=== PATIENT | female | born 1960 | race Caucasian/White ===

== ENCOUNTER 2018-03-19 19:38 | Emergency (ER) | payer BC, OTHER ==
[~2018-03-19] VITALS: Ht 172.7 cm; Wt 90.7 kg
[~2018-03-19 19:38] MED LIST: AMBIEN10 MG PO; AMLODIPINE BESYL5 MG PO; CRESTOR10 MG PO; GABAPENTIN400 MG PO; KEFLEX500 MG PO; PANTOPRAZOLE SO40 MG PO; QUETIAPINE FUM100 MG PO; SEROQUEL25 MG PO; TRAMADOL-ACETAMI1 EA PO
[2018-03-19 20:14] LABS: BASOPHILS % 0.3 % (0.0-1.0); EOSINOPHILS % 0.3 % (0.0-6.0); HEMATOCRIT 34.4 % (34.2-44.1); HEMOGLOBIN 11.1 g/dL (12.0-16.0); LYMPHOCYTES % 27.2 % (18.0-39.1); MEAN CORPUSCULAR HEMOGLOBIN 36.3 pg (28-32); MEAN CORPUSCULAR HGB CONC 32.3 g/dL (31-35); MEAN CORPUSCULAR VOLUME 112.4 fL (81-99); MONOCYTES # (AUTO) 0.8 (0.2-0.8); MONOCYTES % 10.6 % (4.4-11.3); NEUTROPHILS # (AUTO) 4.5 (2.1-6.9); NEUTROPHILS % 60.5 % (38.7-80.0); PLATELET COUNT 162 x10e3/uL (140-360); RED BLOOD COUNT 3.06 x10e6/uL (3.6-5.1); RED CELL DISTRIBUTION WIDTH 11.9 % (11.7-14.4)
[2018-03-19 20:36] LABS: ALBUMIN 2.8 g/dL (3.5-5.0); ALBUMIN/GLOBULIN RATIO 0.7 (0.8-2.0); CALCIUM 9.6 mg/dL (8.4-10.2); CREATININE, SERUM 2.43 mg/dL (0.57-1.11)
--- NOTE | 2018-03-19 20:46 | Diagnostic Imaging Report ---
EXAM: PELVIS AP 1-2 VIEWS INDICATION: Fall, pain COMPARISON: None FINDINGS: BONES: No acute fractures. JOINTS: No malalignment. SOFT TISSUES: Normal IMPRESSION: No pelvic fracture. Signed by: Dr. Ly Pollard M.D. on 03/19/2018 8:43 PM
--- NOTE | 2018-03-19 20:46 | Diagnostic Imaging Report ---
EXAM: CHEST SINGLE (PORTABLE), AP 1 view INDICATION: Fall, pain COMPARISON: None FINDINGS: LINES/TUBES: None LUNGS: No consolidations or edema. PLEURA: No effusions or pneumothorax. HEART AND MEDIASTINUM: Normal size and contour. BONES AND SOFT TISSUES: No acute findings. IMPRESSION: No acute thoracic abnormality. Signed by: Dr. Ly Pollard M.D. on 03/19/2018 8:43 PM
--- NOTE | 2018-03-19 21:07 | Diagnostic Imaging Report ---
EXAMINATION: Head and cervical spine CT without contrast. HISTORY: Status post fall, head trauma, dizziness, head and neck pain. COMPARISON: None. TECHNIQUE: Multidetector axial images were obtained without contrast from the foramen magnum to the vertex and through the cervical spine. The images were reconstructed using brain and bone algorithms. Thin section brain images were reformatted into coronal and sagittal planes. Dose modulation, iterative reconstruction, and/or weight based adjustment of the mA/kV was utilized to reduce the radiation dose to as low as reasonably achievable. HEAD CT FINDINGS: Skull: No lytic or blastic lesions. No fractures. Parenchyma: Focal cortical subcortical white matter hypodensity in the left postcentral gyrus and posterior cingulate gyrus, most likely the sequela from remote infarct. A few scattered matter hypodensities, most likely nonspecific chronic microvascular ischemic changes. No mass, hemorrhage or CT evidence of acute vascular insult. Brain volume: Normal for age. Ventricles: No hydrocephalus or displacement. Arteries: No density suggestive of thrombus. Dural sinuses: No abnormal density. Extra-axial spaces: No abnormal density. Incidentally noted tiny lipoma along the left tentorium without mass effect. Foramen magnum: No mass, Chiari malformation, or basilar invagination. Sella: No obvious mass. Paranasal/mastoid sinuses: Imaged portions unremarkable. CERVICAL SPINE CT FINDINGS: Alignment:Normal alignment and lordosis. Soft tissues: Incidentally noted approximately 2.6 cm well-circumscribed probable sebaceous retention cyst in the subcutaneous soft tissues of the right posterior neck. Vertebrae: Normal height and density. No acute fracture, infection or neoplasm. Degenerative changes: C1-C2: Normal C2-C3: Normal C3-C4: Uncovertebral and facet arthrosis in the left, [id number] left foraminal stenoses. C4-C5: Mild symmetric disc bulge without stenoses C5-C6: Small disc osteophyte complex formation, prominent uncovertebral interval. Extensive facet arthrosis. Moderate right and severe left foraminal stenosis. Mild canal narrowing. C6-C7: Disc osteophyte complex formation, uncovertebral and to a lesser extent facet arthrosis. Severe bilateral foraminal stenosis. C7-T1: Normal IMPRESSION: Head CT: 1. No acute traumatic intracranial hemorrhage. 2. 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 Cervical spine CT: 1. No acute fractures or dislocations. 2. Chronic degenerative changes as described. Note: Acute post traumatic spinal cord, vascular or ligamentous injury cannot adequately be assessed with CT. Signed by: Dr. Bere Baron M.D. on 03/19/2018 9:03 PM
[2018-03-19 22:00] LABS: CLARITY,URINE CLOUDY (CLEAR); COLOR,URINE YELLOW (YELLOW); KETONES,URINE TRACE (NEGATIVE); LEUKOCYTE ESTERASE ,URINE TRACE (NEGATIVE); NITRITE,URINE NEGATIVE (NEGATIVE); PROTEIN,URINE DIPSTICK 1+ (NEGATIVE)
[2018-03-19 22:01] LABS: BILIRUBIN,URINE 1+ (NEGATIVE); URINE UROBILINOGEN 1 mg/dL (0.2 - 1)
[2018-03-19 22:15] LABS: BACTERIA,URINE MODERATE /HPF; EPITHELIAL CELLS,URINE FEW /LPF
[2018-03-19] MEDS ORDERED: SODIUM CHLORIDE 0.9% 1000ML 1,000 ML IV ONE (22:30)
[2018-03-19 22:57] VITALS: BP 154/116
== END 2018-03-20 00:34 | disposition home or self-care (01) ==
LOC: ER 19:38
DX: S00.83XA Contusion of other part of head, initial encounter (principal); W06.XXXA Fall from bed, initial encounter; Y93.84 Activity, sleeping; Y92.003 Bedroom of unspecified non-institutional (private) residence as the place of occurrence of the external cause; N30.91 Cystitis, unspecified with hematuria; I10 Essential (primary) hypertension; E78.5 Hyperlipidemia, unspecified; J44.9 Chronic obstructive pulmonary disease, unspecified; E78.00 Pure hypercholesterolemia, unspecified; F31.9 Bipolar disorder, unspecified
CPT/HCPCS: 36415; 70450; 71045; 72125; 72170; 80053; 81001; 85025; 93005; 99285; J7030

== ENCOUNTER 2023-01-12 19:24 | Inpatient (IN) | payer OTHER ==
[~2023-01-12] VITALS: Ht 177.8 cm; Wt 89.8 kg
[2023-01-12] MEDS ORDERED: ALBUTEROL SULF 0.083% NEB SOLN 3 ML NEB NEB STA (19:34)
[2023-01-12] MEDS ORDERED: ALBUTEROL SULF 0.083% NEB SOLN 3 ML NEB ONE (19:38)
[2023-01-12] MEDS ORDERED: IPRATROPIUM BROMIDE 0.02% 2.5 ML NEB ONE (19:38)
[2023-01-12] MEDS ORDERED: CEFTRIAXONE 1 GM VIAL ONE (19:39)
[2023-01-12 19:44] VITALS: PULSE 105; RESP 18; O2SAT 98
[2023-01-12] MEDS ORDERED: IPRATROPIUM BROMIDE 0.02% 2.5 ML NEB NEB ONE (19:45)
[2023-01-12] MEDS ORDERED: DEXAMETHASONE SOD PHOS 10 MG/1 ML VIAL IV ONE (19:45)
[2023-01-12] MEDS ORDERED: SODIUM CHLORIDE 0.9% 1000ML 1,000 ML IV SCH (19:45)
[2023-01-12 20:01] LABS: BASOPHILS # (AUTO) 0.1 (0.0-0.1); BASOPHILS % 0.4 % (0.0-1.0); EOSINOPHILS # (AUTO) 0.1 (0.0-0.4); EOSINOPHILS % 0.6 % (0.0-6.0); HEMATOCRIT 45.8 % (34.2-44.1); HEMOGLOBIN 15.8 g/dL (12.0-16.0); LYMPHOCYTES # (AUTO) 3.3 (1.0-3.2); LYMPHOCYTES % 23.2 % (18.0-39.1); MEAN CORPUSCULAR HEMOGLOBIN 33.8 pg (28-32); MEAN CORPUSCULAR HGB CONC 34.5 g/dL (31-35); MEAN CORPUSCULAR VOLUME 98.1 fL (81-99); MONOCYTES # (AUTO) 1.3 (0.2-0.8); MONOCYTES % 8.9 % (4.4-11.3); NEUTROPHILS # (AUTO) 9.4 (2.1-6.9); NEUTROPHILS % 66.5 % (38.7-80.0); PLATELET COUNT 323 x10e3/uL (140-360); RED BLOOD COUNT 4.67 x10e6/uL (3.6-5.1); RED CELL DISTRIBUTION WIDTH 12.3 % (11.7-14.4)
[2023-01-12 20:17] LABS: ALBUMIN 3.6 g/dL (3.5-5.0); ALBUMIN/GLOBULIN RATIO 0.7 (0.8-2.0); ANION GAP 20.3 mmol/L (8-16); CALCIUM 9.6 mg/dL (8.4-10.2); CREATININE, SERUM 3.13 mg/dL (0.57-1.11); POTASSIUM 3.3 mmol/L (3.5-5.1)
[2023-01-12] MEDS: ALBUTEROL SULF 0.083% NEB SOLN 3 ML NEB NEB SCH (20:45)
[2023-01-12] MEDS ORDERED: ASPIRIN 81 MG CHEW TAB PO ONE (20:45)
[2023-01-12] MEDS ORDERED: ACETAMINOPHEN 325 MG TAB PO PRN (20:45)
[2023-01-13] VITALS (15 sets, daily range): BP systolic 87–135; BP diastolic 60–79; PULSE 80–100; RESP 18–22; TEMP 97.6–98.6; O2SAT 91–100
[2023-01-13] MEDS ORDERED: BENZONATATE 100 MG CAP PO PRN
[2023-01-13] MEDS ORDERED: DEXTROSE 50% SYRINGE 50 ML IV PRN
[2023-01-13] MEDS ORDERED: MELATONIN 5 MG TABLET PO PRN
[2023-01-13] MEDS ORDERED: ONDANSETRON HCL INJ 2MG/ML 2ML 2 MG/ML VIAL IV PRN
[2023-01-13] MEDS ORDERED: DOCUSATE SODIUM 100 MG CAP PO PRN
[2023-01-13] MEDS ORDERED: DIPHENHYDRAMINE HCL 25 MG CAP PO PRN
[2023-01-13] MEDS ORDERED: HYDRALAZINE HCL 20 MG/ML VIAL IV PRN
[2023-01-13] MEDS ORDERED: ALBUTEROL/IPRATROPIUM 3 ML NEB NEB PRN
[2023-01-13] MEDS ORDERED: ACETAMINOPHEN 325 MG TAB PO PRN
[2023-01-13] MEDS ORDERED: LIDOCAINE 4% PATCH TP PRN
[2023-01-13] MEDS ORDERED: POTASSIUM CHLORIDE 20 MEQ TAB CR PO PRN
[2023-01-13] MEDS ORDERED: SIMETHICONE 80 MG CHEW PO PRN
[2023-01-13] MEDS: SODIUM CHLORIDE 0.9% 1000ML 1,000 ML IV SCH ×4 (00:21→21:39)
[2023-01-13] MEDS ORDERED: ALLERGY RELIEF10 M4 (00:37)
[2023-01-13] MEDS ORDERED: MELATONIN3 MG PO (00:37)
[2023-01-13] MEDS ORDERED: DIVALPROEX SOD250 MG PO (00:37)
[2023-01-13] MEDS ORDERED: CITALOPRAM HBR20 MG PO (00:37)
[2023-01-13] MEDS ORDERED: GABAPENTIN300 MG PO (00:37)
[2023-01-13] MEDS ORDERED: METOPROLOL SUCC50 MG PO (00:37)
[2023-01-13] MEDS ORDERED: QUETIAPINE FUM200 MG PO (00:37)
[2023-01-13] MEDS ORDERED: SIMVASTATIN40 MG PO (00:37)
[2023-01-13] MEDS ORDERED: PNEUMOCOCCAL VACCINE POLYVALENT 23 MCG/0.5 ML VIAL IM SCH (00:51)
[2023-01-13] MEDS: ALBUTEROL SULF 0.083% NEB SOLN 3 ML NEB NEB SCH ×7 (01:30→23:00)
[2023-01-13] MEDS: IPRATROPIUM BROMIDE 0.02% 2.5 ML NEB NEB SCH ×5 (01:30→23:00)
[2023-01-13 05:01] LABS: BASOPHILS % 0.2 % (0.0-1.0); HEMATOCRIT 39.9 % (34.2-44.1); HEMOGLOBIN 13.6 g/dL (12.0-16.0); LYMPHOCYTES # (AUTO) 1.4 (1.0-3.2); LYMPHOCYTES % 15.8 % (18.0-39.1); MEAN CORPUSCULAR HEMOGLOBIN 33.7 pg (28-32); MEAN CORPUSCULAR HGB CONC 34.1 g/dL (31-35); MEAN CORPUSCULAR VOLUME 98.8 fL (81-99); MONOCYTES # (AUTO) 0.1 (0.2-0.8); MONOCYTES % 1.6 % (4.4-11.3); NEUTROPHILS # (AUTO) 7.2 (2.1-6.9); NEUTROPHILS % 81.8 % (38.7-80.0); PLATELET COUNT 248 x10e3/uL (140-360); RED BLOOD COUNT 4.04 x10e6/uL (3.6-5.1); RED CELL DISTRIBUTION WIDTH 12.1 % (11.7-14.4)
[2023-01-13 05:22] LABS: ANION GAP 16.6 mmol/L (8-16); CALCIUM 8.4 mg/dL (8.4-10.2); CREATININE, SERUM 2.84 mg/dL (0.57-1.11); MAGNESIUM 2.4 MG/DL (1.3-2.1); POTASSIUM 3.6 mmol/L (3.5-5.1)
[2023-01-13 05:37] LABS: THYROID STIMULATING HORMONE 0.408 uIU/mL (0.350-4.940)
[2023-01-13] MEDS ORDERED: SODIUM CHLORIDE 0.9% 500ML 500 ML IV ONE (05:45)
[2023-01-13] MEDS ORDERED: MIDODRINE 2.5 MG TAB PO ONE (05:45)
[2023-01-13 06:36] LABS: CLARITY,URINE CLEAR (CLEAR); COLOR,URINE YELLOW (YELLOW)
[2023-01-13 06:37] LABS: KETONES,URINE NEGATIVE (NEGATIVE); LEUKOCYTE ESTERASE ,URINE SMALL (NEGATIVE); NITRITE,URINE NEGATIVE (NEGATIVE); PROTEIN,URINE DIPSTICK TRACE (NEGATIVE); URINE UROBILINOGEN 0.2 mg/dL (0.2 - 1)
[2023-01-13 06:57] LABS: BACTERIA,URINE FEW /HPF; RBC,URINE 0-5 /HPF (0-5)
[2023-01-13 06:58] LABS: EPITHELIAL CELLS,URINE FEW /LPF
[2023-01-13] MEDS: PANTOPRAZOLE SOD 40 MG TABEC PO SCH (08:09)
[2023-01-13] MEDS: ENOXAPARIN 30 MG/0.3 ML SYR SC SCH (16:37)
[2023-01-13] MEDS ORDERED: ENOXAPARIN SOD INJ 40 MG/0.4 ML SYR SC SCH (17:00)
[2023-01-13] MEDS: NYSTATIN 15 GM POWDER UD BTL TOP SCH (18:49)
[2023-01-14] VITALS (14 sets, daily range): BP systolic 101–120; BP diastolic 57–68; PULSE 66–102; RESP 17–22; TEMP 97.5–98; O2SAT 93–100
[2023-01-14] MEDS: ALBUTEROL SULF 0.083% NEB SOLN 3 ML NEB NEB SCH ×6 (03:30→23:30)
[2023-01-14] MEDS: SODIUM CHLORIDE 0.9% 1000ML 1,000 ML IV SCH ×3 (04:39→22:32)
[2023-01-14] MEDS: IPRATROPIUM BROMIDE 0.02% 2.5 ML NEB NEB SCH ×4 (06:00→23:30)
[2023-01-14] MEDS: AZITHROMYCIN 250 MG TAB PO SCH (08:10)
[2023-01-14] MEDS: PANTOPRAZOLE SOD 40 MG TABEC PO SCH (08:10)
[2023-01-14] MEDS: NYSTATIN 15 GM POWDER UD BTL TOP SCH ×2 (08:59→17:53)
[2023-01-14] MEDS ORDERED: NYSTATIN/TRIAMCINOLONE 15 GM CR TOP SCH (09:00)
[2023-01-14 09:59] LABS: BASOPHILS % 0.4 % (0.0-1.0); EOSINOPHILS % 0.2 % (0.0-6.0); HEMATOCRIT 36.4 % (34.2-44.1); HEMOGLOBIN 12.1 g/dL (12.0-16.0); LYMPHOCYTES # (AUTO) 2.7 (1.0-3.2); LYMPHOCYTES % 23.4 % (18.0-39.1); MEAN CORPUSCULAR HEMOGLOBIN 33.9 pg (28-32); MEAN CORPUSCULAR HGB CONC 33.2 g/dL (31-35); MONOCYTES # (AUTO) 0.8 (0.2-0.8); MONOCYTES % 7.4 % (4.4-11.3); NEUTROPHILS # (AUTO) 7.7 (2.1-6.9); NEUTROPHILS % 67.9 % (38.7-80.0); PLATELET COUNT 243 x10e3/uL (140-360); RED BLOOD COUNT 3.57 x10e6/uL (3.6-5.1); RED CELL DISTRIBUTION WIDTH 12.6 % (11.7-14.4)
[2023-01-14 10:19] LABS: CALCIUM 8.5 mg/dL (8.4-10.2); CREATININE, SERUM 1.99 mg/dL (0.57-1.11)
[2023-01-14] MEDS ORDERED: ALBUTEROL SULF 0.083% NEB SOLN 3 ML NEB NEB PRN (11:45)
[2023-01-14] MEDS ORDERED: IPRATROPIUM BROMIDE 0.02% 2.5 ML NEB NEB PRN (11:45)
[2023-01-14] MEDS ORDERED: ONDANSETRON HCL 4 MG ORAL DISINTEGRATING TAB PO PRN (14:15)
[2023-01-14] MEDS ORDERED: SODIUM CHLORIDE 0.9% 1000ML 1,000 ML IV ONE (15:30)
[2023-01-14] MEDS: ENOXAPARIN 30 MG/0.3 ML SYR SC SCH (17:53)
[2023-01-15] VITALS (14 sets, daily range): BP systolic 101–113; BP diastolic 67–101; PULSE 62–99; RESP 16–20; TEMP 98–98.6; O2SAT 92–100
[2023-01-15] MEDS: ALBUTEROL SULF 0.083% NEB SOLN 3 ML NEB NEB SCH ×6 (03:02→22:37)
[2023-01-15] MEDS: SODIUM CHLORIDE 0.9% 1000ML 1,000 ML IV SCH ×2 (05:56→11:59)
[2023-01-15] MEDS: IPRATROPIUM BROMIDE 0.02% 2.5 ML NEB NEB SCH ×3 (07:04→19:09)
[2023-01-15] MEDS: PANTOPRAZOLE SOD 40 MG TABEC PO SCH (08:17)
[2023-01-15] MEDS: GABAPENTIN 300 MG CAP PO SCH ×4 (08:17→20:21)
[2023-01-15] MEDS: AZITHROMYCIN 250 MG TAB PO SCH (08:17)
[2023-01-15] MEDS: CITALOPRAM HYDROBROMIDE 20 MG TAB PO SCH (08:17)
[2023-01-15] MEDS: METOPROLOL SUCCINATE 50 MG TAB XL PO SCH (08:17)
[2023-01-15] MEDS: NYSTATIN 15 GM POWDER UD BTL TOP SCH ×2 (08:18→16:47)
[2023-01-15] MEDS: DIVALPROEX SODIUM 250 MG TAB...DR PO SCH ×2 (08:18→16:46)
[2023-01-15] MEDS: ENOXAPARIN 30 MG/0.3 ML SYR SC SCH (16:46)
[2023-01-15] MEDS ORDERED: QUETIAPINE FUMARATE 100 MG TAB PO SCH (21:00)
[2023-01-15] MEDS ORDERED: MELATONIN 3 MG TAB PO SCH (21:00)
[2023-01-15] MEDS ORDERED: SIMVASTATIN 40 MG TAB PO SCH (21:00)
[2023-01-16] VITALS (10 sets, daily range): BP systolic 107–134; BP diastolic 65–90; PULSE 74–91; RESP 16–20; TEMP 97.5–98.3; O2SAT 95–100
[2023-01-16] MEDS: ALBUTEROL SULF 0.083% NEB SOLN 3 ML NEB NEB SCH ×4 (02:54→15:20)
[2023-01-16] MEDS: IPRATROPIUM BROMIDE 0.02% 2.5 ML NEB NEB SCH ×3 (02:54→10:30)
[2023-01-16 07:35] LABS: BASOPHILS # (AUTO) 0.1 (0.0-0.1); BASOPHILS % 0.7 % (0.0-1.0); EOSINOPHILS # (AUTO) 0.1 (0.0-0.4); EOSINOPHILS % 1.5 % (0.0-6.0); HEMATOCRIT 34.9 % (34.2-44.1); HEMOGLOBIN 11.4 g/dL (12.0-16.0); LYMPHOCYTES % 39.4 % (18.0-39.1); MEAN CORPUSCULAR HEMOGLOBIN 33.6 pg (28-32); MEAN CORPUSCULAR HGB CONC 32.7 g/dL (31-35); MEAN CORPUSCULAR VOLUME 102.9 fL (81-99); MONOCYTES # (AUTO) 0.7 (0.2-0.8); MONOCYTES % 8.8 % (4.4-11.3); NEUTROPHILS # (AUTO) 3.7 (2.1-6.9); NEUTROPHILS % 49.2 % (38.7-80.0); PLATELET COUNT 233 x10e3/uL (140-360); RED BLOOD COUNT 3.39 x10e6/uL (3.6-5.1); RED CELL DISTRIBUTION WIDTH 12.6 % (11.7-14.4)
[2023-01-16 07:55] LABS: ANION GAP 12.5 mmol/L (8-16); CALCIUM 8.4 mg/dL (8.4-10.2); CREATININE, SERUM 1.44 mg/dL (0.57-1.11); POTASSIUM 3.5 mmol/L (3.5-5.1)
[2023-01-16] MEDS: AZITHROMYCIN 250 MG TAB PO SCH (10:01)
[2023-01-16] MEDS: DIVALPROEX SODIUM 250 MG TAB...DR PO SCH ×2 (10:02→17:08)
[2023-01-16] MEDS: GABAPENTIN 300 MG CAP PO SCH ×2 (10:02→14:05)
[2023-01-16] MEDS: CITALOPRAM HYDROBROMIDE 20 MG TAB PO SCH (10:02)
[2023-01-16] MEDS: METOPROLOL SUCCINATE 50 MG TAB XL PO SCH (10:03)
[2023-01-16] MEDS: NYSTATIN 15 GM POWDER UD BTL TOP SCH (10:07)
[2023-01-16] MEDS: PANTOPRAZOLE SOD 40 MG TABEC PO SCH (11:12)
[2023-01-16] MEDS ORDERED: CEFUROXIME500 MG PO (15:19)
[2023-01-16] MEDS ORDERED: PNEUMOCOCCAL VACCINE POLYVALENT 23 MCG/0.5 ML VIAL IM ONE (16:30)
== END 2023-01-16 17:35 | disposition home health service (06) | DRG 190 ==
LOC: ER 19:32 → ERHOLD 20:38 → MED/SURG2 23:09
PROVIDERS: ADMIT Internal Medicine; ATTEND Internal Medicine
DX: J44.0 Chronic obstructive pulmonary disease with (acute) lower respiratory infection (principal); J18.9 Pneumonia, unspecified organism; N17.9 Acute kidney failure, unspecified; E86.0 Dehydration; T67.5XXA Heat exhaustion, unspecified, initial encounter; X58.XXXA Exposure to other specified factors, initial encounter; Y92.009 Unspecified place in unspecified non-institutional (private) residence as the place of occurrence of the external cause; R53.1 Weakness; F17.218 Nicotine dependence, cigarettes, with other nicotine-induced disorders; E78.5 Hyperlipidemia, unspecified; F31.9 Bipolar disorder, unspecified; I10 Essential (primary) hypertension; G62.9 Polyneuropathy, unspecified; Z88.0 Allergy status to penicillin; Z91.030 Bee allergy status; Z79.899 Other long term (current) drug therapy; Z20.822 Contact with and (suspected) exposure to COVID-19
CPT/HCPCS: 36415; 71045; 80048; 80053; 81001; 82550; 83036; 83605; 83735; 84443; 84484; 85025; 87040; 87086; 90732; 93005; 94640; 94799; 96361; 99252; 99284; J0696; J1100; J1650; J7030; J7040; J7050